=== PATIENT | male | born 1985 | race Hispanic/Latino ===

== ENCOUNTER 2021-02-16 07:52 | Emergency (ER) | payer BC ==
--- OUTSIDE RECORDS SUMMARY | 2021-02-16 07:55 | XMS REPORT | Continuity of Care Document ---
:1985 Author Organization [facility] t Address [address] [place] [address] Care Team Providers Name Role Phone Mayra Han MD Attending Clinician Antonette Mendes Attending Clinician Problems This patient has no known problems. Allergies, Adverse Reactions, Alerts This patient has no known allergies or adverse reactions. Medications This patient has no known medications. Procedures This patient has no known procedures. Encounters Start End Encounter Admission Attending Care Care Encounter Source Date/Time Date/Time Type Type Clinicians Facility Department ID 2020-05-15 Outpatient [facility] [id number] [facility] BL 10:57:03 2020-09-03 2020-09-03 Outpatient [facility] [id number] [facility]BL 08:12:00 08:12:00 2020-05-28 2020-05-28 Outpatient [facility] [id number] [facility]BL 07:56:00 07:56:00 2020-04-09 2020-04-09 Outpatient [facility]BL [id number] MHBL 06:31:00 06:31:00 2020-03-31 2020-03-31 Emergency CEASAR Han [id number] 19:10:27 23:29:00 Mayra Sterling [id number] [place] [id number] [place] [id number] [id number] 2020-02-13 2020-02-13 Emergency CEASAR Martines [id number] 16:47:29 20:05:00 Nata Sterling [id number] [place] [id number] [place] [id number] Results This patient has no known results.
[2021-02-16 10:49] LABS: Absolute Lymphocytes (CBC) 1.8 K/uL (0.7-4.9); Basophils % 0.5 % (0-1.3); Hematocrit 45.2 % (39.6-49.0); Lymphocytes % 20.1 % (15.3-44.8); MPV 8.7 fL (7.6-11.3); RBC Red Blood Cell Count 5.46 M/uL (4.33-5.43)
[2021-02-16] MEDS ORDERED: ONDANSETRON 4 MG/2 ML VIAL ONE (11:20)
[2021-02-16] MEDS ORDERED: MORPHINE 4 MG/ML SYR ONE ×2 (11:20→13:13)
[2021-02-16 11:24] LABS: ALT/SGPT 55 U/L (12-78); AST/SGOT 20 U/L (15-37); Albumin 3.4 g/dL (3.4-5.0); Alkaline Phosphatase 123 U/L (45-117); BUN Blood Urea Nitrogen 11 mg/dL (7-18); Bicarbonate 25 mmol/L (21-32); Bilirubin Total 0.4 mg/dL (0.2-1.0); Glucose Level 307 mg/dL (74-106); Sodium Level 136 mmol/L (136-145)
--- NOTE | 2021-02-16 11:35 | RAD REPORT ---
EXAM DESCRIPTION: CT - Soft Tissue Neck W/Contr - 02/16/2021 11:09 am CLINICAL HISTORY: posterior neck swelling;Fever COMPARISON: No comparisons TECHNIQUE: During dynamic enhancement using 100 milliliters nonionic IV contrast, axial 5 millimeter thick images of the neck were obtained. All CT scans are performed using dose optimization technique as appropriate and may include automated exposure control or mA/KV adjustment according to patient size. FINDINGS: Intracranial portion the examination is unremarkable. No globe or orbital content abnormal ity. Mastoid air cells and paranasal sinuses are clear. There is right deviation of nasal septum. Approximately 12 millimeter area of asymmetric prominent soft tissues seen in the left vallecular and pyriform sinus region. This abuts but does not appear to directly involve the epiglottis. No other pharyngeal mucosal mass or asymmetry identified. Soft palate is unremarkable. No tonsillar m ass identified. Posterior pharyngeal tissues are normal in appearance. No retropharyngeal mass or pre vertebral soft tissue thickening. Vocal cords are unremarkable. The parotid, submandibular and thyroid gland tissue show no suspicious findings. A few scattered nonspecific sub centimeter cervical lymph nodes are present. No abnormal lymphadenopa thy pattern seen. IMPRESSION: No prevertebral soft tissue thickening, retropharyngeal abscess or other emergent CT fin ding. Focal 12 millimeter sized asymmetric soft tissue in the left valleculae and pyriform sinus region. Th is is possibly an artifact of patient's swallowing. Mass lesions are not common in a patient this age . Follow-up outpatient ENT consultation may be considered for direct visualization.
--- NOTE | 2021-02-16 12:45 | ER ---
Nurse's Notes [facility] Name: Yoni Culver Jr Age: 35 yrs Sex: Male : 1985 Arrival Date: 02/16/2021 Time: 07:55 Bed 13 Private MD: Diagnosis: Folliculitis Presentation: 02/16 08:33 Chief complaint: Patient states: swelling to back of neck since , has gotten iw bigger and more tender, across entire lower scalp. Coronavirus screen: At this time, the client does not indicate any symptoms associated with coronavirus-19. Ebola Screen: Patient negative for fever greater than or equal to 101.5 degrees Fahrenheit, and additional compatible Ebola Virus Disease symptoms Patient denies exposure to infectious person. Patient denies travel to an Ebola-affected area in the 21 days before illness onset. No symptoms or risks identified at this time. Initial Sepsis Screen: Does the patient meet any 2 criteria? No. Patient's initial sepsis screen is negative. Does the patient have a suspected source of infection? No. Patient's initial sepsis screen is negative. Risk Assessment: Do you want to hurt yourself or someone else? Patient reports no desire to harm self or others. Onset of symptoms was February 12, 2021. 08:33 Method Of Arrival: Ambulatory iw 08:33 Acuity: [place] 3 iw Historical: - Allergies: 08:37 Invokana; iw - Home Meds: 08:37 Janumet oral oral [Active]; gabapentin oral oral [Active]; iw 08:37 Glipizide Oral [Active]; iw - PMHx: 08:37 Diabetes - NIDDM; Pneumonia; iw - Immunization history:: Adult Immunizations not up to date. - Social history:: Smoking status: Patient reports use of chewing tobacco. Screenin:02 Abuse screen: Denies threats or abuse. Denies injuries from another. Nutritional ca1 screening: No deficits noted. Tuberculosis screening: No symptoms or risk factors identified. Fall Risk None identified. Assessment: 10:02 General: Appears in no apparent distress. comfortable, Behavior is calm, cooperative, ca1 appropriate for age. Pain: Complains of pain in base of the skull Pain currently is 10 out of 10 on a pain scale. 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 More on the scalp area, tender to touch, red and swollen. PT reports pain started after a haircut. PT states, "this happened before". Neuro: Level of Consciousness is awake, alert, obeys commands, Oriented to person, place, time, situation. Cardiovascular: Heart tones S1 S2 present Capillary refill < 3 seconds Patient's skin is warm and dry. Respiratory: Airway is patent Respiratory effort is even, unlabored, Respiratory pattern is regular, symmetrical, Breath sounds are clear bilaterally. GI: Abdomen is round non-distended, Bowel sounds present X 4 quads. Abd is soft and non tender X 4 quads. : No signs and/or symptoms were reported regarding the genitourinary system. EENT: No signs and/or symptoms were reported regarding the EENT system. Derm: Skin is intact, is healthy with good turgor, Skin is pink, warm \\T\\ dry. Derm: Pores appear larger at the base of the scalp and reports tenderness when touched. Musculoskeletal: Circulation, motion, and sensation intact. Capillary refill < 3 seconds. 11:00 Reassessment: Patient appears in no apparent distress at this time. Patient and/or ca1 family updated on plan of care and expected duration. Pain level reassessed. Patient is alert, oriented x 3, equal unlabored respirations, skin warm/dry/pink. 12:20 General: Appears in no apparent distress. comfortable, Behavior is calm, cooperative, zb appropriate for age. Pain: Complains of pain in scalp and base of the skull Pain currently is 9 out of 10 on a pain scale. Pain began . Neuro: Level of Consciousness is awake, alert, obeys commands, Oriented to person, place, time, situation. Cardiovascular: Heart tones S1 S2 present Capillary refill < 3 seconds Patient's skin is warm and dry. Respiratory: Airway is patent Respiratory effort is even, unlabored, Respiratory pattern is regular, symmetrical. GI: Abdomen is distended, non-distended, Bowel sounds present X 4 quads. Abd is soft and non tender X 4 quads. : No signs and/or symptoms were reported regarding the genitourinary system. Derm: Skin is intact, is healthy with good turgor, Skin is pink, warm \\T\\ dry. swelling at the base of neck and pitting. Musculoskeletal: Circulation, motion, and sensation intact. Capillary refill < 3 seconds, Range of motion: intact in all extremities. 12:53 Reassessment: ECP at bedside discussing care. D/C pending IV medication. zb 13:23 Reassessment: notified ECP of pain. patient medicated. zb 13:40 Reassessment: Patient appears in no apparent distress at this time. Patient and/or zb family updated on plan of care and expected duration. Pain level reassessed. Patient is alert, oriented x 3, equal unlabored respirations, skin warm/dry/pink. IV medication completed. Patient states symptoms have improved. 13:42 Reassessment: d/c patient up at zuly. gait steady and even. zb Vital Signs: 08:33 BP 108 / 87; Pulse 82; Resp 16; Temp 98.4; Pulse Ox 95% on R/A; Weight 204.12 kg; iw Height 6 ft. 2 in. (187.96 cm); Pain 10/10; 10:02 BP 118 / 71; Pulse 103; Resp 15 S; Pulse Ox 93% on R/A; ca1 10:32 BP 118 / 71; Pulse 102; Resp 16; Pulse Ox 91% on R/A; mh5 11:00 BP 133 / 78; Pulse 104; Resp 18 S; Pulse Ox 95% on R/A; ca1 12:00 BP 130 / 78; Pulse 102; Resp 22; Pulse Ox 95% on R/A; Pain 7/10; sr5 12:54 BP 137 / 90; Pulse 89; Resp 16; Pulse Ox 97% on R/A; zb 13:41 BP 115 / 93; Pulse 96; Resp 16; Pulse Ox 96% on R/A; zb 08:33 Body Mass Index 57.78 (204.12 kg, 187.96 cm) iw 12:00 neck pain sr5 ED Course: 07:55 Patient arrived in ED. as 08:35 Triage completed. iw 09:57 Ted Umana NP is PHCP. pm1 09:57 Danika Tarango MD is Attending Physician. pm1 09:57 Tara Yoon, JAVID is Primary Nurse. ca1 09:58 Arm band placed on. ca1 10:02 Patient has correct armband on for positive identification. Bed in low position. Call ca1 light in reach. Side rails up X 1. Pulse ox on. NIBP on. 10:31 Patient has correct armband on for positive identification. Bed in low position. Call mh5 light in reach. Side rails up X 1. Pulse ox on. NIBP on. 10:40 Inserted saline lock: 20 gauge in left antecubital area, using aseptic technique. Blood ca1 collected. 10:40 Initial lab(s) drawn, by me, sent to lab. First set of blood cultures drawn by me. ca1 11:09 CT Soft Tissue Neck W/contr In Process Unspecified. EDMS 12:04 Inserted saline lock: 20 gauge in left hand, using aseptic technique. Blood collected. sr5 IV discontinued, 20G LAC discontinued, no blood return, painful with NS flush, no swelling or redness noted. 13:41 No provider procedures requiring assistance completed. IV discontinued, intact, zb bleeding controlled, No redness/swelling at site. Pressure dressing applied. Administered Medications: 12:03 Drug: morphine 4 mg Route: IVP; Site: left hand; sr5 13:03 Follow up: Response: No adverse reaction; No change in condition; Pain is unchanged, zb physician notified; RASS: Alert and Calm (0) 12:03 Drug: Zofran (Ondansetron) 4 mg Route: IVP; Site: left hand; sr5 13:05 Follow up: Response: No adverse reaction; Marked relief of symptoms zb 13:02 Drug: Clindamycin 600 mg Route: IVPB; Infused Over: 30 mins; Site: left hand; zb 13:42 Follow up: Response: No adverse reaction; IV Status: Completed infusion; IV Intake: 50mlzb 13:03 Drug: morphine 4 mg {Note: RASS 0.} Route: IVP; Site: left hand; zb 13:42 Follow up: Response: No adverse reaction; Pain is decreased; RASS: Alert and Calm (0) zb Intake: 13:42 IV: 50ml; Total: 50ml. zb Outcome: 12:44 Discharge ordered by . pm1 13:41 Discharged to home ambulatory. zb 13:41 Condition: stable 13:41 Discharge instructions given to patient, family, Instructed on discharge instructions, follow up and referral plans. medication usage, Demonstrated understanding of instructions, follow-up care, medications, Prescriptions given X 2. 13:45 Patient left the ED. zb Addendum: 02/22/2021 07:23 Addendum: Culture Results: Positive blood culture. No further action required. Bacteria a a5 sensitive to prescribed antibiotic. Signatures: Dispatcher [employer] Suzette Jones Irene, RN RN iw Ernestina Huerta RN RN aa5 Ted Umana, SPANISHER SPANISHER pm1 Angelo Yañez RN RN sr5 Dianna Atkinson [facility] Tara Yoon RN RN ca1 Nathalie Mahoney RN RN zb Corrections: (The following items were deleted from the chart) 02/16 08:37 08:33 Pulse 82bpm; Resp 16bpm; Pulse Ox 95% RA; Temp 98.4F; 204.12 kg; Height 6 ft. 2 iw in.; BMI: 57.7; Pain 10/10; iw 13:04 13:03 morphine 4 mg IVP in left hand zb zb
--- NOTE | 2021-02-16 12:45 | EDPHYS ---
Physician Documentation [facility] Name: Yoni Culver Jr Age: 35 yrs Sex: Male : 1985 Arrival Date: 02/16/2021 Time: 07:55 Bed 13 Private MD: ED Physician Danika Tarango HPI: 02/16 11:02 This 35 yrs old Male presents to ER via Ambulatory with complaints of Neck pm1 Problem. 11:02 The patient or guardian complains of swelling. The symptoms are located on the pm1 posterior aspect of neck. Onset: The symptoms/episode began/occurred 4 day(s) ago. Context: The neck injury/problem resulted from from unknown cause. Associated signs and symptoms: Pertinent positives: subjective fever and chills yesterday. The pain does not radiate. Modifying factors: The symptoms are alleviated by remaining still, the symptoms are aggravated by movement. Severity of symptoms: in the emergency department the symptoms are actually worse. The patient has not experienced similar symptoms in the past. The patient has not recently seen a physician, the patient's primary care provider is Dr. RAMIREZ at Dr. Allan's office. Historical: - Allergies: 08:37 Invokana; iw - Home Meds: 08:37 Janumet oral oral [Active]; gabapentin oral oral [Active]; iw 08:37 Glipizide Oral [Active]; iw - PMHx: 08:37 Diabetes - NIDDM; Pneumonia; iw - Immunization history:: Adult Immunizations not up to date. - Social history:: Smoking status: Patient reports use of chewing tobacco. ROS: 11:02 Constitutional: Negative for weight loss, Positive for e subjective fever and chills pm1 yesterday 11:02 Cardiovascular: Negative for chest pain, palpitations, and edema, Respiratory: Negative pm1 for shortness of breath, cough, wheezing, and pleuritic chest pain. 11:02 Abdomen/GI: Negative for abdominal pain, nausea, vomiting, diarrhea, and constipation, Back: Negative for injury and pain, MS/Extremity: Negative for injury and deformity. 11:02 Neuro: Negative for headache, weakness, numbness, tingling, and seizure. 11:02 Neck: Positive for pain with movement, swelling, of the posterior aspect of neck, Negative for bony tenderness. 11:02 Skin: Positive for swelling, of the posterior aspect of neck. Exam: 11:02 Constitutional: This is a well developed, well nourished patient who is awake, alert, pm1 and in no acute distress. Head/Face: Normocephalic, atraumatic. 11:02 Neck: Trachea midline, no thyromegaly or masses palpated, and no cervical lymphadenopathy. Supple, full range of motion without nuchal rigidity, or vertebral point tenderness. No Meningismus. Cardiovascular: Regular rate and rhythm with a normal S1 and S2. No gallops, murmurs, or rubs. Normal PMI, no JVD. No pulse deficits. Respiratory: Lungs have equal breath sounds bilaterally, clear to auscultation and percussion. No rales, rhonchi or wheezes noted. No increased work of breathing, no retractions or nasal flaring. 11:02 Skin: Appearance: normal except for affected area, swelling, noted on the base of the skull and posterior aspect of neck, that are mild. 11:02 Neuro: Exam negative for acute changes, Orientation: is normal, Mentation: is normal, Motor: is normal, moves all fours. Vital Signs: 08:33 BP 108 / 87; Pulse 82; Resp 16; Temp 98.4; Pulse Ox 95% on R/A; Weight 204.12 kg; iw Height 6 ft. 2 in. (187.96 cm); Pain 10/10; 10:02 BP 118 / 71; Pulse 103; Resp 15 S; Pulse Ox 93% on R/A; ca1 10:32 BP 118 / 71; Pulse 102; Resp 16; Pulse Ox 91% on R/A; mh5 11:00 BP 133 / 78; Pulse 104; Resp 18 S; Pulse Ox 95% on R/A; ca1 12:00 BP 130 / 78; Pulse 102; Resp 22; Pulse Ox 95% on R/A; Pain 7/10; sr5 12:54 BP 137 / 90; Pulse 89; Resp 16; Pulse Ox 97% on R/A; zb 13:41 BP 115 / 93; Pulse 96; Resp 16; Pulse Ox 96% on R/A; zb 08:33 Body Mass Index 57.78 (204.12 kg, 187.96 cm) iw 12:00 neck pain sr5 MDM: 10:13 Patient medically screened. pm1 12:43 Data reviewed: vital signs. Data interpreted: Pulse oximetry: on room air is 95 %. pm1 Interpretation: normal. Counseling: I had a detailed discussion with the patient and/or guardian regarding: the historical points, exam findings, and any diagnostic results supporting the discharge/admit diagnosis, lab results, radiology results, the need for outpatient follow up, to return to the emergency department if symptoms worsen or persist or if there are any questions or concerns that arise at home. 12:45 ED course: Patient evaluated by Dr. Tarango and impression is folliculitis Recommends pm1 clindamycin IV in ER and discharge home with clindamycin. 02/16 10:22 Order name: Blood Culture Adult (2) pm1 02/16 10:22 Order name: CBC with Diff; Complete Time: 10:58 pm1 02/16 10:22 Order name: CMP; Complete Time: 11:39 pm1 02/16 10:22 Order name: Procalcitonin; Complete Time: 11:39 pm1 02/16 10:22 Order name: Lactate; Complete Time: 11:22 pm1 02/16 10:22 Order name: CT Soft Tissue Neck W/contr; Complete Time: 11:39 pm1 02/16 10:22 Order name: IV Saline Lock; Complete Time: 10:48 pm1 Administered Medications: 12:03 Drug: morphine 4 mg Route: IVP; Site: left hand; sr5 13:03 Follow up: Response: No adverse reaction; No change in condition; Pain is unchanged, zb physician notified; RASS: Alert and Calm (0) 12:03 Drug: Zofran (Ondansetron) 4 mg Route: IVP; Site: left hand; sr5 13:05 Follow up: Response: No adverse reaction; Marked relief of symptoms zb 13:02 Drug: Clindamycin 600 mg Route: IVPB; Infused Over: 30 mins; Site: left hand; zb 13:42 Follow up: Response: No adverse reaction; IV Status: Completed infusion; IV Intake: 50mlzb 13:03 Drug: morphine 4 mg {Note: RASS 0.} Route: IVP; Site: left hand; zb 13:42 Follow up: Response: No adverse reaction; Pain is decreased; RASS: Alert and Calm (0) zb Disposition: 02/16/21 12:44 Discharged to Home. Impression: Folliculitis. - Condition is Stable. - Discharge Instructions: Folliculitis. - Prescriptions for Clindamycin HCl 300 mg Oral Capsule - take 1 capsule by ORAL route every 6 hours for 10 days; 40 capsule. Tylenol- Codeine #3 300-30 mg Oral Tablet - take 2 tablets by ORAL route every 4-6 hours As needed; 20 tablet. - Medication Reconciliation Form, Thank You Letter, Antibiotic Education, Prescription Opioid Use form. - Follow up: Emergency Department; When: As needed; Reason: Worsening of condition. Follow up: Private Physician; When: 2 - 3 days; Reason: Recheck today's complaints, Continuance of care, Re-evaluation by your physician. - Problem is new. - Symptoms have improved. Addendum: 02/17/2021 18:35 Co-signature as Attending Physician, Danika Tarango MD. m a2 Signatures: Dispatcher [employer] EDMichelle Luna RN RN iw Ted Umana NP PER DIEM NURSE pm1 Angelo Yañez RN RN sr5 Danika Tarango MD MD ma2 Nathalie Mahoney RN RN zb Corrections: (The following items were deleted from the chart) 02/16 13:45 12:44 02/16/2021 12:44 Discharged to Home. Impression: Folliculitis. Condition is zb Stable. Forms are Medication Reconciliation Form, Thank You Letter, Antibiotic Education, Prescription Opioid Use. Follow up: Emergency Department; When: As needed; Reason: Worsening of condition. Follow up: Private Physician; When: 2 - 3 days; Reason: Recheck today's complaints, Continuance of care, Re-evaluation by your physician. Problem is new. Symptoms have improved. pm1 18:51 11:02 Constitutional: Negative for fever, chills, and weight loss, pm1 pm1
[2021-02-16] MEDS ORDERED: CLINDAMYCIN 600MG/D5W 600 MG/50 ML BAG IV ONE (13:13)
[2021-02-16 14:01] VITALS: TEMP 98.4
[2021-02-16 14:04] VITALS: BP 118/71; O2SAT 93
== END 2021-02-16 13:45 | disposition home or self-care (01) ==
LOC: ER 07:52
DX: L73.9 Follicular disorder, unspecified (principal); E11.9 Type 2 diabetes mellitus without complications; F17.220 Nicotine dependence, chewing tobacco, uncomplicated; Z88.8 Allergy status to other drugs, medicaments and biological substances
CPT/HCPCS: 87040 ×2; 85025; 36415; 87205; 82565; 83605; 80053; 84145; 70491; Q9967; J2405; 87077; 87186; 96365; 96375; 99284

== ENCOUNTER 2021-02-20 15:28 | Emergency (ER) | payer BC ==
--- OUTSIDE RECORDS SUMMARY | 2021-02-20 15:31 | XMS REPORT | Continuity of Care Document ---
:1985 Author Organization [facility] t Address [address] [place] [address] Care Team Providers Name Role Phone Mayra [...] 06:31:00 06:31:00 2020-03-31 2020-03-31 Emergency CEASAR Han [id number] 19:10:27 23:29:00 Mayra [place] [id number] [place] [id number] [place] [id number] [id number] 2020-02-13 2020-02-13 Emergency CEASAR Martines [id number] 16:47:29 20:05:00 Nata Sterling [id number] [place] [id number] [place] [id number] [id number] Results This patient has no known results.
--- NOTE | 2021-02-20 19:19 | RAD REPORT ---
EXAM DESCRIPTION: US - Extremity Nonvascular Limited - 02/20/2021 6:49 pm CLINICAL HISTORY: Scalp swelling COMPARISON: None FINDINGS: Patient has an area swelling within the occiput. Sonographic evaluation does not demonstra te a cystic or solid mass. Fluid collection is not visualized IMPRESSION: No sonographic abnormality seen to explain the posterior scalp swelling
--- NOTE | 2021-02-20 19:27 | EDPHYS ---
Physician Documentation [facility] Name: Yoni Culver Jr Age: 35 yrs Sex: Male : 1985 Arrival Date: 02/20/2021 Time: 15:37 Bed 26 Private MD: ED Physician Danika Tarango HPI: 02/20 19:28 This 35 yrs old Male presents to ER via Ambulatory with complaints of Head jr8 Pain. 21:54 Patient stated that he has been on Abx for cellulitic region to back of head. Feels jr8 that it is getting better overall but having continued pain. Wants us to reevaluate to make sure it is ok. Severity of symptoms: At their worst the symptoms were mild in the emergency department the symptoms are unchanged. The patient has not experienced similar symptoms in the past. The patient has been recently seen by a physician:. Historical: - Allergies: 15:52 Invokana; ca1 - Home Meds: 15:52 Janumet Oral [Active]; Glipizide Oral [Active]; gabapentin Oral [Active]; ca1 - PMHx: 15:52 Diabetes - NIDDM; Pneumonia; ca1 - Immunization history:: Flu vaccine is not up to date. - Social history:: Smoking status: Patient denies any tobacco usage or history of. ROS: 21:54 Constitutional: Negative for fever, chills, and weight loss, Cardiovascular: Negative jr8 for chest pain, palpitations, and edema, Respiratory: Negative for shortness of breath, cough, wheezing, and pleuritic chest pain, Abdomen/GI: Negative for abdominal pain, nausea, vomiting, diarrhea, and constipation. 21:54 Skin: Positive for cellulitis, of the scalp. 21:54 All other systems are negative. Exam: 21:54 Constitutional: This is a well developed, well nourished patient who is awake, alert, jr8 and in no acute distress. Head/Face: Normocephalic, atraumatic. Cardiovascular: Regular rate and rhythm with a normal S1 and S2. No gallops, murmurs, or rubs. Normal PMI, no JVD. No pulse deficits. Respiratory: Lungs have equal breath sounds bilaterally, clear to auscultation and percussion. No rales, rhonchi or wheezes noted. No increased work of breathing, no retractions or nasal flaring. MS/ Extremity: Pulses equal, no cyanosis. Neurovascular intact. Full, normal range of motion. Neuro: Awake and alert, GCS 15, oriented to person, place, time, and situation. Cranial nerves II-XII grossly intact. Motor strength 5/5 in all extremities. Sensory grossly intact. Cerebellar exam normal. Normal gait. 21:54 Skin: Patient has approximately 7.5 cm indurated region to back of scalp at the level of the occiput. No fluctuance noted. Tender to palpation. Mild erythema present . Vital Signs: 15:49 BP 159 / 90; Pulse 87; Resp 16 S; Temp 97.9(TE); Pulse Ox 98% on R/A; Weight 204.12 kg ca1 (R); Height 6 ft. 2 in. (187.96 cm) (R); Pain 9/10; 19:44 BP 156 / 101; Pulse 80; Resp 17; Pulse Ox 98% ; rr5 15:49 Body Mass Index 57.78 (204.12 kg, 187.96 cm) ca1 MDM: 17:31 Patient medically screened. jr8 19:25 Data reviewed: vital signs, nurses notes, radiologic studies, ultrasound, and as a jr8 result, I will discharge patient. Data interpreted: Pulse oximetry: on room air is 98 %. Interpretation: normal. Counseling: I had a detailed discussion with the patient and/or guardian regarding: the historical points, exam findings, and any diagnostic results supporting the discharge/admit diagnosis, radiology results, the need for outpatient follow up, a general surgeon, to return to the emergency department if symptoms worsen or persist or if there are any questions or concerns that arise at home. ED course: No defined fluid or cystic collection noted on imaging. Overall when compared to previous pictures patient took, cellulitic region looks better. Will add bactrim to regimen . 02/20 17:57 Order name: US Arredondoanmolnery Nigel Garcia; Complete Time: 19:21 jr8 Administered Medications: No medications were administered Disposition: 02/20/21 19:27 Discharged to Home. Impression: Cellulitis of neck. - Condition is Stable. - Discharge Instructions: Cellulitis, Adult. - Prescriptions for Ibuprofen 800 mg Oral Tablet - take 1 tablet by ORAL route every 8 hours As needed take with food; 30 tablet. Tylenol- Codeine #3 300-30 mg Oral Tablet - take 2 tablets by ORAL route every 4-6 hours As needed; 16 tablet. Bactrim DS 800- 160 mg Oral Tablet - take 1 tablet by ORAL route every 12 hours for 10 days; 20 tablet. - Medication Reconciliation Form, Thank You Letter, Antibiotic Education, Prescription Opioid Use form. - Follow up: Private Physician; When: 5 - 6 days; Reason: Wound Recheck, Recheck today's complaints, Continuance of care, Re-evaluation by your physician. - Problem is new. - Symptoms have improved. Addendum: 02/22/2021 18:38 Co-signature as Attending Physician, Danika Tarango MD. m a2 Signatures: Dispatcher [employer] EDMS Khoa Benjamin PA PA jr8 Danika Tarango MD MD ma2 Harmeet Bhardwaj, RN RN rr5 Tara Yoon RN RN ca1 Corrections: (The following items were deleted from the chart) 02/20 19:45 19:27 02/20/2021 19:27 Discharged to Home. Impression: Cellulitis of neck. Condition is rr5 Stable. Forms are Medication Reconciliation Form, Thank You Letter, Antibiotic Education, Prescription Opioid Use. Follow up: Private Physician; When: 5 - 6 days; Reason: Wound Recheck, Recheck today's complaints, Continuance of care, Re-evaluation by your physician. Problem is new. Symptoms have improved. jr8
--- NOTE | 2021-02-20 19:27 | ER ---
Nurse's Notes [facility] Name: Yoni Culver Jr Age: 35 yrs Sex: Male : 1985 Arrival Date: 02/20/2021 Time: 15:37 Bed 26 Private MD: Diagnosis: Cellulitis of neck Presentation: 02/20 15:49 Chief complaint: Patient states: Was here Tuesday for the swelling and pain back of my ca1 head and neck. Still in pain and can't sleep at night from the pain. Coronavirus screen: Client denies travel out of the [place] in the last 14 days. At this time, the client does not indicate any symptoms associated with coronavirus-19. Ebola Screen: Patient negative for fever greater than or equal to 101.5 degrees Fahrenheit, and additional compatible Ebola Virus Disease symptoms Patient denies exposure to infectious person. Patient denies travel to an Ebola-affected area in the 21 days before illness onset. No symptoms or risks identified at this time. Initial Sepsis Screen: Does the patient meet any 2 criteria? No. Patient's initial sepsis screen is negative. Does the patient have a suspected source of infection? No. Patient's initial sepsis screen is negative. Risk Assessment: Do you want to hurt yourself or someone else? Patient reports no desire to harm self or others. Onset of symptoms was February 20, 2021. 15:49 Method Of Arrival: Ambulatory ca1 15:49 Acuity: [place] 4 ca1 Historical: - Allergies: 15:52 Invokana; ca1 - Home Meds: 15:52 Janumet Oral [Active]; Glipizide Oral [Active]; gabapentin Oral [Active]; ca1 - PMHx: 15:52 Diabetes - NIDDM; Pneumonia; ca1 - Immunization history:: Flu vaccine is not up to date. - Social history:: Smoking status: Patient denies any tobacco usage or history of. Screenin:00 Abuse screen: Denies threats or abuse. Denies injuries from another. Nutritional rr5 screening: No deficits noted. Tuberculosis screening: No symptoms or risk factors identified. Fall Risk None identified. Total Wade Fall Scale indicates No Risk (0-24 pts). Assessment: 18:00 General: Appears in no apparent distress. uncomfortable, Behavior is calm, cooperative, rr5 appropriate for age. 18:00 Pain: Complains of pain in scalp Pain currently is 8 out of 10 on a pain scale. Quality rr5 of pain is described as aching, Pain began gradually, Is intermittent. Neuro: Level of Consciousness is awake, alert, obeys commands, Oriented to person, place, time, situation. Cardiovascular: Capillary refill < 3 seconds Patient's skin is warm and dry. Respiratory: Airway is patent Respiratory effort is even, unlabored, Respiratory pattern is regular, symmetrical. GI: No signs and/or symptoms were reported involving the gastrointestinal system. : No signs and/or symptoms were reported regarding the genitourinary system. EENT: No signs and/or symptoms were reported regarding the EENT system. Derm: Skin is intact, swelling scalp area Skin is pink, warm \T\ dry. Skin temperature is warm. Musculoskeletal: Capillary refill < 3 seconds. 18:35 Reassessment: ultrasound at bedside. rr5 19:44 Reassessment: Patient appears in no apparent distress at this time. Patient is alert, rr5 oriented x 3, equal unlabored respirations, skin warm/dry/pink. discharge instruction given and explained without complaints made. Vital Signs: 15:49 BP 159 / 90; Pulse 87; Resp 16 S; Temp 97.9(TE); Pulse Ox 98% on R/A; Weight 204.12 kg ca1 (R); Height 6 ft. 2 in. (187.96 cm) (R); Pain 9/10; 19:44 BP 156 / 101; Pulse 80; Resp 17; Pulse Ox 98% ; rr5 15:49 Body Mass Index 57.78 (204.12 kg, 187.96 cm) ca1 ED Course: 15:37 Patient arrived in ED. ds1 15:51 Triage completed. ca1 15:52 Arm band placed on right wrist. ca1 17:30 Khoa Benjamin PA is PHCP. jr8 17:30 Danika Tarango MD is Attending Physician. jr8 18:01 Harmeet Bhardwaj RN is Primary Nurse. rr5 18:30 Patient has correct armband on for positive identification. Bed in low position. Call rr5 light in reach. Pulse ox on. NIBP on. 18:49 US Extrmty Nonvasular Limited In Process Unspecified. EDMS 19:44 No provider procedures requiring assistance completed. Patient did not have IV access rr5 during this emergency room visit. Administered Medications: No medications were administered Outcome: 19:27 Discharge ordered by . em 19:44 Discharged to home ambulatory. rr5 19:44 Condition: stable 19:44 Discharge instructions given to patient, Instructed on discharge instructions, follow up and referral plans. medication usage, Demonstrated understanding of instructions, follow-up care, medications, Prescriptions given X 3. 19:45 Patient left the ED. rr5 Addendum: 02/22/2021 07:14 Addendum: Culture Results: Positive blood culture. No further action required. Bacteria e b sensitive to prescribed antibiotic. Signatures: Dispatcher [employer] EDRI VicentePeg ds1 Khoa Benjamin PA PA jr8 Danii Robertson Raymond, RN RN rr5 Tara Yoon RN RN ca1
[2021-02-21 08:52] VITALS: TEMP 97.9; O2SAT 98
[2021-02-21 08:53] VITALS: BP 156/101
== END 2021-02-20 19:45 | disposition home or self-care (01) ==
LOC: ER 15:28
DX: L03.221 Cellulitis of neck (principal); E11.9 Type 2 diabetes mellitus without complications; Z88.8 Allergy status to other drugs, medicaments and biological substances
CPT/HCPCS: 76882; 99283